=== PATIENT | male | born 1950 | race American Indian/Alaskan Native ===

== ENCOUNTER 2018-07-17 19:53 | Emergency (ER) | payer MEDICARE ==
[2018-07-17 20:27] VITALS: BP 153/69
[2018-07-17] MEDS ORDERED: NORCO 10/325 PO ONE (22:12)
[2018-07-17] MEDS ORDERED: CLEOCIN IM ONE (22:12)
--- NOTE | 2018-07-17 22:28 | Emergency Department Report ---
ED ENT HPI - General Chief complaint: Dental/Oral Stated complaint: ABCESS IN MOUTH Time Seen by Provider: 07/17/18 22:12 Source: patient Mode of arrival: Ambulatory Limitations: No Limitations - History of Present Illness Initial comments: This is a 68-year-old male nontoxic, well nourished in appearance, no acute signs of distress presents to the ED with c/o of left upper toothache 3 weeks. Patient denies following up with a dentist. Patient stated that pain radiates from his job to his left side of head. Patient otherwise denies any head trau ma. Patient describes toothache as aching level of 8 out of 10. Patient denies any facial swelling. Patient denies any numbness, tingling, fever, chills, headache, stiff neck, abdominal pain, chest pain, shortness of breath. Patient denies any drug allergies or significant past medical history. MD complaint: tooth pain -: week(s) Location: tooth # 1 - pain here Severity: mild Severity scale (0 -10): 8 Quality: aching Consistency: constant Improves with: none Worsens with: swallowing Context- Dental: history of dental caries, poor dental care Associated Symptoms: gum swelling, toothache. denies: fever, cough, pain with swallowing, sore throat, tinnitus, hearing loss, discharge from ear, rhinorrhea - Related Data Previous Rx's Medication Instructions Recorded Last Taken Type HYDROcodone/APAP 5-325 [[place] 1 each PO Q6HR PRN #14 tablet 03/07/15 Unknown Rx 5/325] Lisinopril/Hydrochlorothiazide 1 tab PO QDAY #30 tablet 03/07/15 Unknown Rx [Zestoretic 10-12.5 mg] Penicillin Vk [Veetids TAB] 500 mg PO QID #30 tablet 03/07/15 Unknown Rx Acetaminophen/Codeine [Tylenol 1 tab PO Q6H PRN #12 tab 07/17/18 Unknown Rx /Codeine # 3 tab] Chlorhexidine Mouthwash [Peridex] 15 ml MM BID #1 bottle 07/17/18 Unknown Rx Clindamycin [Clindamycin CAP] 300 mg PO Q8H #21 cap 07/17/18 Unknown Rx Allergies Allergy/AdvReac Type Severity Reaction Status Date / Time No Known Allergies Allergy Verified 07/17/18 20:27 ED Dental HPI - General Chief complaint: Dental/Oral Stated complaint: ABCESS IN MOUTH Time Seen by Provider: 07/17/18 22:12 Source: patient Mode of arrival: Ambulatory Limitations: No Limitations - Related Data Previous Rx's Medication Instructions Recorded Last Taken Type HYDROcodone/APAP 5-325 [[place] 1 each PO Q6HR PRN #14 tablet 03/07/15 Unknown Rx 5/325] Lisinopril/Hydrochlorothiazide 1 tab PO QDAY #30 tablet 03/07/15 Unknown Rx [Zestoretic 10-12.5 mg] Penicillin Vk [Veetids TAB] 500 mg PO QID #30 tablet 03/07/15 Unknown Rx Acetaminophen/Codeine [Tylenol 1 tab PO Q6H PRN #12 tab 07/17/18 Unknown Rx /Codeine # 3 tab] Chlorhexidine Mouthwash [Peridex] 15 ml MM BID #1 bottle 07/17/18 Unknown Rx Clindamycin [Clindamycin CAP] 300 mg PO Q8H #21 cap 07/17/18 Unknown Rx Allergies Allergy/AdvReac Type Severity Reaction Status Date / Time No Known Allergies Allergy Verified 07/17/18 20:27 ED Review of Systems ROS: Stated complaint: ABCESS IN MOUTH Other details as noted in HPI Constitutional: denies: chills, fever Eyes: denies: eye pain, eye discharge, vision change ENT: dental pain. denies: ear pain, throat pain Respiratory: denies: cough, shortness of breath, wheezing Cardiovascular: denies: chest pain, palpitations Endocrine: no symptoms reported Gastrointestinal: denies: abdominal pain, nausea, diarrhea Genitourinary: denies: urgency, dysuria Musculoskeletal: denies: back pain, joint swelling, arthralgia Skin: denies: rash, lesions Neurological: denies: headache, weakness, paresthesias Psychiatric: denies: anxiety, depression Hematological/Lymphatic: denies: easy bleeding, easy bruising ED Past Medical Hx - Past Medical History Previous Medical History?: No - Surgical History Past Surgical History?: Yes Additional Surgical History: cyst removed from back - Social History Smoking Status: Current Every Day Smoker Substance Use Type: None - Medications Home Medications: Home Medications Medication Instructions Recorded Confirmed Last Taken Type HYDROcodone/APAP 5-325 [[place] 1 each PO Q6HR PRN #14 tablet 03/07/15 Unknown Rx 5/325] Lisinopril/Hydrochlorothiazide 1 tab PO QDAY #30 tablet 03/07/15 Unknown Rx [Zestoretic 10-12.5 mg] Penicillin Vk [Veetids TAB] 500 mg PO QID #30 tablet 03/07/15 Unknown Rx Acetaminophen/Codeine [Tylenol 1 tab PO Q6H PRN #12 tab 07/17/18 Unknown Rx /Codeine # 3 tab] Chlorhexidine Mouthwash [Peridex] 15 ml MM BID #1 bottle 07/17/18 Unknown Rx Clindamycin [Clindamycin CAP] 300 mg PO Q8H #21 cap 07/17/18 Unknown Rx ED Physical Exam - General Limitations: No Limitations General appearance: alert, in no apparent distress - Head Head exam: Present: atraumatic, normocephalic - Eye Eye exam: Present: normal appearance - Expanded ENT Exam Expanded Ear exam: Present: normal external inspection Mouth exam: Present: normal external inspection. Absent: drooling, trismus, muffled voice Teeth exam: Present: dental caries, fractured tooth #, dental tenderness #, gingival enlargement 1 - Other (abscess) Throat exam: Positive: normal inspection - Neck Neck exam: Present: normal inspection, full ROM. Absent: tenderness, meningismus, lymphadenopathy - Extremities Exam Extremities exam: Present: normal inspection, full ROM - Back Exam Back exam: Present: normal inspection, full ROM - Neurological Exam Neurological exam: Present: alert, oriented X3 - Psychiatric Psychiatric exam: Present: normal affect, normal mood - Skin Skin exam: Present: warm, dry, intact, normal color. Absent: rash ED Course Vital Signs 07/17/18 20:25 Temperature 98.4 F Pulse Rate 62 Respiratory 18 Rate Blood Pressure 153/69 O2 Sat by Pulse 100 Oximetry - Reevaluation(s) Reevaluation #1: 07/17/18 22:27 Patient is speaking in full sentences with no signs of distress noted. - I & D Left Face Type of Procedure: Simple Site: left Progress: Under sterile field, I used Betadine to cleanse the area. I used an 18 gauge hypo with 10 cc syringe and aspirated about 3 mL of purulent drainage. Swelling has significantly decreased. A sterile 4 x 4 with tape has been applied as dressing. Bleeding is under control. Patient tolerated the procedure well with no signs of distress noted. ED Medical Decision Making - Medical Decision Making This is a 68-year-old male that presents with dental abscess. Patient is stable and was examined by me. There is slight swelling to the right upper mandible. I used 18-gauge hypo-with 10 mL syringe and aspirated about 3 ml. I did give patient clindamycin 600 mg IM in the ED and patient is discharged with clindamyc in. He had strict instructions to follow-up with oral maxillary surgeon in 24 hours or if symptoms would worsen to return to emergency room as was possible. Patient is discharged with Tylenol #3, Peridex and Clinda. Patient was instructed not to operate any machinery when taking Tylenol #3 due to drowsiness. At time of discharge, the patient does not seem toxic or ill in appearance. No acute signs of distress noted. Patient agrees to discharge treatment plan of care. No further questions noted by the patient. Critical care attestation.: If time is entered above; I have spent that time in minutes in the direct care of this critically ill patient, excluding procedure time. ED Disposition Clinical Impression: Dental abscess Disposition: DC- TO HOME OR SELFCARE Is pt being admited?: No Does the pt Need Aspirin: No Condition: Stable Instructions: Dental Abscess (ED) Additional Instructions: Follow-up with a oral maxillary surgeon in 24 hours or if symptoms worsen and continue return to emergency room as soon as possible. Do not operate any machinery while taking Tylenol with codeine as this may cause drowsiness. [facility] [employer] Address: [id number], [place] [address] Hours: Tuesday Closed Tuesday 8AM-1PM, 2-5PM Tuesday 8AM-1PM, 2-5PM Tuesday 8AM-1PM, 2-5PM 8AM-1PM, 2-5PM Tuesday 7AM-2PM Tuesday Closed Prescriptions: Acetaminophen/Codeine [Tylenol /Codeine # 3 tab] 1 tab PO Q6H PRN #12 tab PRN Reason: Pain , Severe (7-10) Chlorhexidine Mouthwash [Peridex] 15 ml MM BID #1 bottle Clindamycin [Clindamycin CAP] 300 mg PO Q8H #21 cap Referrals: PRIMARY CAREMD [Referring] - 3-5 Days SAPNA FRANCO MD [Staff Physician] - 3-[address] [facility] [Outside] - 3-5 Days Forms: Work/School Release Form(ED)
== END 2018-07-17 22:46 | disposition home or self-care (01) ==
LOC: ED 19:53
DX: K04.7 Periapical abscess without sinus (principal)
CPT/HCPCS: 96372; 99282